=== PATIENT | female | born 1950 | race Caucasian/White ===

== ENCOUNTER 2021-03-18 10:27 | Outpatient (CLI) | payer MEDICARE, OTHER, SELFPAY ==
--- NOTE | 2021-03-18 11:30 | ECG_ITS ---
Measurements Intervals [place] Rate: 70 P: 43 OR: 154 QRS: -27 QRSD: 90 T: 30 QT: 388 QTc: 421 Interpretive Statements SINUS RHYTHM DELAYED PRECORDIAL R/S TRANSITION VOLTAGE CRITERIA FOR LVH BORDERLINE ST-T WAVE ABNORMALITY- DIFFUSE LEADS BASELINE ARTIFACT- I, II, III, AVR, AVL, AVF, V6 BORDERLINE ECG Electronically Signed On 03-18-2021 13:50:11 CDT by Yogesh Richardson D.O.
[2021-03-18 12:15] LABS: Anion Gap 14 mmol/L (8-16); Blood Urea Nitrogen 14 mg/dL (7-17); Calcium 9.3 mg/dL (8.4-10.2); Carbon Dioxide 27 mmol/L (22-30); Chloride 100 mmol/L (98-107); Estimated Glomerular Filt Rate 49; Glucose 145 mg/dL (65-105); Potassium 3.6 mmol/L (3.4-5.0); Sodium 141 mmol/L (137-145)
== END 2021-03-18 10:28 | disposition home or self-care (01) ==
LOC: ANHSURGERY 03-26 10:28
PROVIDERS: Anesthesiology; PCP Family Medicine; Visit Provider Urology
DX: Z01.818 Encounter for other preprocedural examination (principal); I10 Essential (primary) hypertension
CPT/HCPCS: 36415; 80048; 87086; 87088; 93005

== ENCOUNTER → 2021-03-23 01:05 | Outpatient (CLI) | payer MEDICARE, OTHER, SELFPAY ==
[2021-03-23 17:24] LABS: SARS-CoV-2 RNA PCR Negative
== END ==
PROVIDERS: PCP Family Medicine; Visit Provider Urology
DX: Z01.812 Encounter for preprocedural laboratory examination (principal); Z20.822 Contact with and (suspected) exposure to COVID-19
CPT/HCPCS: C9803; U0003; U0005

== ENCOUNTER 2021-03-26 00:08 | Day surgery (SDC) | payer MEDICARE, OTHER, SELFPAY ==
[2021-03-12 09:55] VITALS: BMI 29.5
--- NOTE | 2021-03-20 10:06 | P.HP_ITS ---
H&P: HPI History of Present Illness Date/Time: 03/20/21 10:06 70-year-old who underwent a sling procedure. She had 50% efficacy. She is still bothered by stress incontinence. She has a fixed urethra. She has a small area of mesh exposure in the sulcus. Chief Complaint: intrinsic sphincter deficiency Review of Systems Review of Systems: All systems reviewed & are unremarkable except as noted in HPI and below [facility] Family History Family History (Updated 03/20/21 @ 10:08 by Ze Jon MD) Other Heart disease Social History Social History Smoking status: Never smoker Alcohol intake: current Spiritual care concerns: No Meds Home Medications and Allergies Home Medications Medication Instructions Recorded Confirmed Type aspirin 81 mg PO DAILY 03/12/21 03/12/21 History biotin 2,500 mcg PO DAILY 03/12/21 03/12/21 History calcium carbonate-vitamin D3 1 tablet PO WEEKLY 03/12/21 03/12/21 History [Caltrate with Vitamin D3] cetirizine 10 mg PO DAILY 03/12/21 03/12/21 History cholecalciferol (vitamin D3) 125 mcg PO DAILY 03/12/21 03/12/21 History gabapentin 900 mg PO HS 03/12/21 03/12/21 History losartan-hydrochlorothiazide 1 tablet PO QAM 03/12/21 03/12/21 History metformin 500 mg PO QPM 03/12/21 03/12/21 History pantoprazole 40 mg PO DAILY 03/12/21 03/12/21 History potassium chloride 20 meq PO DAILY 03/12/21 03/12/21 History trimethoprim 100 mg PO HS 03/12/21 03/12/21 History Allergies Allergy/AdvReac Type Severity Reaction Status Date / Time No Known Allergies Allergy Verified 03/12/21 09:19 Exam Narrative: Exam Narrative: fix urethra noted. Small area of mesh exposure at the sulcus Const: General: cooperative and combative HENMT: Head: normal to inspection Neck: Neck: normal visual inspection Resp: Effort & Inspection: normal respiratory effort and able to speak in complete sentences GI: Inspection: normal to inspection Back/Spine/Pelvis: Back: no CVA tenderness Assessment and Plan Assessment and plan (1) Intrinsic sphincter deficiency (ISD): Code(s): N36.42 - Intrinsic sphincter deficiency (ISD) Status: Acute Assessment and Plan: cystoscopy with bulking agent (2) Exposure of vaginal mesh through vaginal wall: Code(s): T83.721A - Exposure of implanted vaginal mesh into vagina, initial encounter Status: Acute Assessment and Plan: excision of the above
--- NOTE | 2021-03-25 16:16 | WPDANESEPPF ---
Anes - Initial Pre Proc Eval Procedure: Operation Date: 03/26/21 09:15 Proposed Procedures p Excision Vaginal Mesh, Cystoscopy with Injection Bulking Agent - Ze Jon MD Date/Time: 03/25/21 16:16 Surgeon: Ze Jon MD Pre Op Diagnosis: ISD Patient Data Age: 70 Gender: F Height: 1.75 m Weight: 90.75 kg Allergies Allergy/AdvReac Type Severity Reaction Status Date / Time No Known Allergies Allergy Verified 03/12/21 09:19 Home Medications Medication Instructions Recorded Confirmed Type aspirin 81 mg PO DAILY 03/12/21 03/12/21 History biotin 2,500 mcg PO DAILY 03/12/21 03/12/21 History calcium carbonate-vitamin D3 1 tablet PO WEEKLY 03/12/21 03/12/21 History [Caltrate with Vitamin D3] cetirizine 10 mg PO DAILY 03/12/21 03/12/21 History cholecalciferol (vitamin D3) 125 mcg PO DAILY 03/12/21 03/12/21 History gabapentin 900 mg PO HS 03/12/21 03/12/21 History losartan-hydrochlorothiazide 1 tablet PO QAM 03/12/21 03/12/21 History metformin 500 mg PO QPM 03/12/21 03/12/21 History pantoprazole 40 mg PO DAILY 03/12/21 03/12/21 History potassium chloride 20 meq PO DAILY 03/12/21 03/12/21 History trimethoprim 100 mg PO HS 03/12/21 03/12/21 History Patient hx anesthesia problems: none Family hx anesthesia problems: none PMFSH Past Medical History Medical History (Updated 03/25/21 @ 16:17 by Soham Davis MD) Diabetes Exposure of vaginal mesh through vaginal wall High blood pressure Intrinsic sphincter deficiency (ISD) Overweight (BMI 25.0-29.9) Family History Family History (Updated 03/20/21 @ 10:08 by Ze Jon MD) Other Heart disease Social History Social History Smoking status: Never smoker Alcohol intake: current Living arrangements: with family Spiritual care concerns: No Anes - Eval Final PreProcedure Day of Procedure 03/25/21 16:16 Patient weight: overweight Heart: regular rate and rhythm Lungs: clear to auscultation and normal air movement Airway: Mallampati scale class II Neurological: alert and oriented Last oral intake: >/= 8 hours ASA classification: III Emergent: no Anesthetic plan: proceed Anesthesia type and monitoring: general LMA Informed Consent: The patient's anesthetic plan and its attendant risks and benefits were discussed with the patient/family/POA. Questions were solicited and answers provided to the satisfaction of the patient/family/POA.
[2021-03-26] VITALS (7 sets, daily range): BP systolic 127–159; BP diastolic 67–81; PULSE 54–82; RESP 14–18; TEMP 36; O2SAT 97–100
--- NOTE | 2021-03-26 07:17 | WPDHPUPDATE1 ---
History and Physical Update Update Date/Time: 03/26/21 07:17 History and Physical has been reviewed, including an updated exam of the patient. There are NO changes in the patient's condition. Risks, benefits, and alternatives have been discussed and questions answered. Patient agrees to proceed with procedure.
[2021-03-26] MEDS: LACTATED RINGERS 1,000 ML 30 ML IV CONT (07:47)
[2021-03-26 08:02] LABS: Glucose Point of Care 144 mg/dl (65-105)
[2021-03-26] MEDS: ceFAZolin 2 GM/D5W 50 ML 2 GM/50 ML BAG IVPB (09:33)
--- NOTE | 2021-03-26 10:14 | W.PM.PROC2 ---
Procedure Note - Detailed Date of Procedure 03/26/21 Pre-op Diagnosis Exposed vaginal mesh ISD Post-op Diagnosis same Procedure Performed Excision of exposed vaginal mesh Cystoscopy with injection of suburethral bulking agent Surgeon Ze Jon MD Anesthesia MAC Indications This is a woman has undergone a sling procedure in the past. She has mesh exposure. She also has persistent or recurrent stress incontinence. She has a fixed urethra. She is here today for excision of the exposed mesh as well as injection of a bulking agent. She understands risks of bleeding, infection, recurrent exposure of mesh, persistent or recurrent stress incontinence, obstructive voiding requiring catheterization, need for ancillary procedures. She agrees to proceed Findings Narrow introitus with atrophic vaginitis. Small area of mesh exposure and right sulcus completely removed. Open urethra consistent with intrinsic sphincter deficiency. Description of Procedure She has correctly identified. Informed consent obtained. She from the operating room. She was given mac anesthesia. She was prepped and draped in a sterile fashion. She has get appropriate perioperative antibiotics. A time-out performed. I placed a [place] retractor. I saw the exposed mesh in the right sulcus. It was a very small area. I was able to grab with a mosquito clamp. I excised in its entirety. I sent it for pathological analysis. I closed the incision with a [id number] 2 0 Vicryl suture. I then performed cystoscopy. She had mild trabeculation. There is no bladder abnormality or surgical artifact. She an open urethra consistent with intrinsic sphincter deficiency. I injected my bulking agent at the 10:00, 2, and 6 o'clock position. I used a total of 2 syringes. There appeared to be bulking effect. I then drained her bladder with a 14 [place] red rubber catheter. She was awakened and transferred to PACU in stable condition. Implants MPQ Estimated Blood Loss 10 Drains No Packing No Pathology none sent Complications No immediate complications Condition stable Disposition PACU
[2021-03-26 10:23] LABS: Glucose Point of Care 113 mg/dl (65-105)
[2021-03-26] MEDS: LIDOCAINE HCL 2% GEL UROJET 10 ML PKG MUCOUS MEM (10:51)
== END 2021-03-26 13:24 | disposition home or self-care (01) ==
PROVIDERS: PCP Family Medicine; Visit Provider Urology
PROC: 3E0K8GC Introduction of Other Therapeutic Substance into Genitourinary Tract, Via Natural or Artificial Opening Endoscopic (ICD-10-PCS; CPT 57287; principal; 2021-03-26 09:15)
DX: T83.711A Erosion of implanted vaginal mesh to surrounding organ or tissue, initial encounter (principal); Y83.8 Other surgical procedures as the cause of abnormal reaction of the patient, or of later complication, without mention of misadventure at the time of the procedure; N93.9 Abnormal uterine and vaginal bleeding, unspecified; N13.9 Obstructive and reflux uropathy, unspecified; N95.2 Postmenopausal atrophic vaginitis; Z79.82 Long term (current) use of aspirin; Z79.84 Long term (current) use of oral hypoglycemic drugs; N36.42 Intrinsic sphincter deficiency (ISD); E11.9 Type 2 diabetes mellitus without complications
CPT/HCPCS: 57287; 51715; 82948; 88300; A9270; J0131; J0690; J1100; J2250; J2405; J2704; J3010; J7120; L8606

== ENCOUNTER 2022-02-10 09:35 | Outpatient (RCR) | payer MEDICARE, OTHER, SELFPAY ==
[2022-02-10 10:30] VITALS: BMI 24.7
--- NOTE | 2022-02-17 14:13 | PCWOUND ---
WOCN note patient did not show up for scheduled appointment. No call was made to cancel or reschedule
== END 2022-05-02 08:07 | disposition home or self-care (01) ==
LOC: ANHWOC 09:35
PROVIDERS: PCP Family Medicine; Visit Provider Internal Medicine Medical Oncology
DX: Z43.3 Encounter for attention to colostomy (principal); Z71.89 Other specified counseling; T14.8XXA Other injury of unspecified body region, initial encounter
CPT/HCPCS: 99213; G0463